=== PATIENT | female | born 1960 | race Caucasian/White ===

== ENCOUNTER 2021-01-31 10:05 | Emergency (ER) | payer MEDICARE, MEDICAID ==
[~2021-01-31] VITALS: Ht 170.2 cm; Wt 208.9 kg
[~2021-01-31 10:05] MED LIST: BACI28.33 TP; BISA10SU65 PR; CEPH-376 PO; CHOL100011 PO; CITA40TA12 PO; DOCU-131 PO; INSU100C5 SQ-INSULIN; INSU100I28 SQ-INSULIN; LACT1CAP24 PO; LEVO750T26 PO; METH-640 PO; METR500T PO; NYST60PO TP; OXYC5TAB98 PO; calcium
--- NOTE | 2021-01-31 11:00 | NUR ---
Task RN: skin grader at bedside for xray now.
--- NOTE | 2021-01-31 11:20 | NUR ---
REport recieved for meal break coverage from BARRON Schultz and care assumed for break period only. Pt awaiting recheck from .
[2021-01-31 12:21] VITALS: BP 139/87
== END 2021-01-31 12:23 | disposition home or self-care (01) ==
LOC: ED 10:30
DX: L03.011 Cellulitis of right finger (principal); E78.5 Hyperlipidemia, unspecified; F17.210 Nicotine dependence, cigarettes, uncomplicated
CPT/HCPCS: 99283